=== PATIENT | male | born 1995 | race Caucasian/White ===

== ENCOUNTER 2021-02-18 01:32 | Emergency (ER) | payer BC ==
[~2021-02-18] VITALS: Ht 182.9 cm; Wt 117.9 kg
[2021-02-18] MEDS ORDERED: NACL 0.9% 1,000 ML IV ONE (01:40)
--- NOTE | 2021-02-18 01:45 | NUR ---
PT TRANSFERRED FROM EMS [facility] TO ER BED 12
[2021-02-18 01:46] VITALS: BP 123/64
--- NOTE | 2021-02-18 01:46 | NUR ---
25 YO M DINH FROM HOME WITH C/C OF 02/05 R FLANK PAIN. PT IS INTOXICATED. PT DOES NOT ANSWER QUESTIONS FULLY, UNABLE TO FULLY ASSESS PT. PER EMS PT HAS A CIRRHOSIS. HX:CIRRHOSIS Addendum: 02/18/21 at 0314 by [facility] DENIES RX AND ALLERGIES
--- NOTE | 2021-02-18 02:20 | NUR ---
LAB AT BEDSIDE.
[2021-02-18 02:54] LABS: BASOPHILS % (AUTO) 0.4 % (0.0-2.0); EOSINOPHILS # (AUTO) 0.3 K/uL (0-0.4); EOSINOPHILS % (AUTO) 5.3 % (0.0-4.0); HEMATOCRIT 40.9 % (36-52); HEMOGLOBIN 13.8 g/dL (12.0-18.0); LYMPHOCYTES # (AUTO) 2.5 K/uL (2.0-11.5); LYMPHOCYTES % (AUTO) 42.6 % (20.5-51.1); MEAN CORPUSCULAR HEMOGLOBIN 31 pg (27-31); MEAN CORPUSCULAR HGB CONC 34 g/dL (33-37); MEAN CORPUSCULAR VOLUME 92.3 fL (80-94); MONOCYTES # (AUTO) 0.5 K/uL (0.8-1.0); MONOCYTES % (AUTO) 7.9 % (1.7-9.3); NEUTROPHILS # (AUTO) 2.5 K/uL (1.8-7.7); NEUTROPHILS % (AUTO) 43.8 % (42.2-75.2); PLATELET COUNT (AUTO) 210 K/uL (140-450); RED BLOOD CELL COUNT(AUTO) 4.43 MIL/uL (4.20-6.10); RED CELL DISTRIBUTION WIDTH 13.9 % (11.6-13.7); WHITE BLOOD COUNT (AUTO) 5.8 K/uL (4.8-10.8)
--- NOTE | 2021-02-18 03:00 | NUR ---
PT IS SLEEPING. OPENS EYES TO PAIN. EQUAL RISE AND FALL OF CHEST WALL. VSS. PT IS IN STABLE CONDITION. ALL NEEDS MET AT THIS TIME.
--- NOTE | 2021-02-18 03:00 | NUR ---
Note undone in EDM - 02/18/21 at 0529 by MED PT IS SLEEPING. OPENS EYES TO PAIN. EQUAL RISE AND FALL OF CHEST WALL. VSS. PT IS IN STABLE CONDITION. ALL NEEDS MET AT THIS TIME. RECEIVED ORDERS FROM TO DC CT AND UA.
[2021-02-18 03:04] LABS: ALBUMIN 3.7 g/dL (3.4-5.0); ANION GAP 16.5 (8-16); CARBON DIOXIDE 24.9 mmol/L (21-32); CREATININE 0.8 mg/dL (0.6-1.3); POTASSIUM 3.4 mmol/L (3.5-5.1); TOTAL BILIRUBIN 0.4 mg/dL (0.0-1.0)
--- NOTE | 2021-02-18 04:50 | NUR ---
Mohan francis in ED - 02/18/21 at 0705 by [facility] PT STATES HE STILL FEELS DIZZY, KELLY CALDERON STATED TO LET HIM SLEEP.
--- NOTE | 2021-02-18 05:30 | NUR ---
PT IS SLEEPING. OPENS EYES TO SOUND. EQUAL RISE AND FALL OF CHEST WALL. VSS. PT IS IN STABLE CONDITION. ALL NEEDS MET AT THIS TIME. RECEIVED ORDERS FROM TO CANCEL CT AND UA.
--- NOTE | 2021-02-18 05:44 | NUR ---
PT IS AWAKE AND ALERT. AMBULATED TO RR AND BACK TO BED WITH STEADY GAIT. PROVIDED WITH WATER PER REQUEST.
--- NOTE | 2021-02-18 05:50 | NUR ---
PT STATES HE STILL FEELS DIZZY, ERMD YUMIKO STATED TO LET HIM SLEEP.
--- NOTE | 2021-02-18 07:06 | NUR ---
Pt report given to RAQUEL MACDONALD. Transfer of care at this time.
--- NOTE | 2021-02-18 07:06 | NUR ---
Report and continuation of care given to RAQUEL Karimi
--- NOTE | 2021-02-18 07:15 | NUR ---
Patient presents with both eyes closed. monitor and storage bin tender in place. VSS; respirations even/unlabored. Bed locked in lowest position, side rails x 1, call light in reach.
[2021-02-18] MEDS ORDERED: levETIRAcetam 500 MG TAB PO ONE (08:35)
--- NOTE | 2021-02-18 09:00 | NUR ---
Pt states he has tremors and dizziness, requesting Keppra at this time. Advised last taken Keppra [address] Black made aware.
[2021-02-18] MEDS: chlordiazePOXIDE 25 MG CAP PO SCH ×2 (09:08→13:00)
[2021-02-18] MEDS ORDERED: KEP500 PO (12:24)
[2021-02-18 13:36] VITALS: BP 126/83
--- NOTE | 2021-02-18 13:36 | NUR ---
Patient discharged with v/s stable. Written and verbal after care instructions ABOUT ALCOHOL INTOXICATION given and explained. Patient alert, oriented and verbalized understanding of instructions. Ambulatory with steady gait. All questions addressed prior to discharge. ID band removed. Patient advised to follow up with PMD. Rx of KEPPRA given. Patient educated on indication of medication including possible reaction and side effects. Opportunity to ask questions provided and answered.
== END 2021-02-18 13:36 | disposition home or self-care (01) ==
LOC: MED 01:32
DX: F10.129 Alcohol abuse with intoxication, unspecified (principal); Y90.6 Blood alcohol level of 120-199 mg/100 ml
CPT/HCPCS: 36415; 80053; 82140; 85025; 96360; 99285; G0482; J7030